=== PATIENT | male | born 1930 | race Asian ===

== ENCOUNTER 2019-04-25 17:56 | Inpatient (IN) | payer OTHER, MEDICARE ==
[~2019-04-25] VITALS: Ht 160 cm; Wt 64.7 kg
[2019-04-25 19:06] LABS: BASOPHILS ABSOLUTE AUTO 0.02 K/mm3 (0.00-0.23); BASOPHILS PERCENT AUTO 0 % (0-2); EOSINOPHILS ABSOLUTE AUTO 0.14 K/mm3 (0.00-0.68); EOSINOPHILS PERCENT AUTO 2 % (0-6); IMMATURE GRAN ABSOLUTE AUTO 0.06 K/mm3 (0.00-0.10); IMMATURE GRAN PERCENT AUTO 1 % (0-1); LYMPHOCYTES ABSOLUTE AUTO 0.74 K/mm3 (0.84-5.20); LYMPHOCYTES PERCENT AUTO 8 % (21-46); MONOCYTES ABSOLUTE AUTO 1.06 K/mm3 (0.16-1.47); MONOCYTES PERCENT AUTO 12 % (4-13); Mean Corpuscular HGB 32.5 pg (26.0-34.0); Mean Corpuscular HGB Conc 34.8 g/dL (31.5-36.5); Mean Corpuscular Volume 94 fL (80-100); Mean Platelet Volume 10.9 fL (9.1-12.4); NEUTROPHILS ABSOLUTE AUTO 7.17 K/mm3 (1.96-9.15); NEUTROPHILS PERCENT AUTO 78 % (41-73); Platelet Count 132 K/mm3 (150-400); RDW Coefficient Variation 13.2 % (11.7-14.2); RDW Standard Deviation 45.5 fL (35.1-46.3); Red Blood Cell Count 2.46 M/mm3 (4.30-5.90); White Blood Cell Count 9.19 K/mm3 (4.00-11.30)
[2019-04-25 19:46] LABS: Albumin, Blood 3.3 g/dL (3.4-5.0); Albumin/Globulin Ratio 0.9 (0.8-1.8); Bilirubin, Total 0.3 mg/dL (0.1-1.0); Bun/Creatinine Ratio 30.3 (12.0-20.0); Creatinine, Blood 2.44 mg/dL (0.60-1.20); Globulin, Blood 3.7 g/dL (2.2-4.0); Potassium, Blood 3.7 mmol/L (3.5-5.5)
[2019-04-25] MEDS ORDERED: ACET325 PO (20:33)
[2019-04-25] MEDS ORDERED: ASPIR 8181 MG PO (20:34)
[2019-04-25] MEDS ORDERED: ATOR20 PO (20:36)
[2019-04-25] MEDS ORDERED: AMLO5 PO (20:39)
[2019-04-25] MEDS ORDERED: Vitamin D2000 UNIT PO (20:40)
[2019-04-25] MEDS ORDERED: Cyclobenzaprine5 MG PO (20:41)
[2019-04-25] MEDS ORDERED: FERSU300 PO (20:42)
[2019-04-25] MEDS ORDERED: FINA5 PO (20:43)
[2019-04-25] MEDS ORDERED: FOLI1 PO (20:43)
[2019-04-25] MEDS ORDERED: GLIP5 PO (20:45)
[2019-04-25] MEDS ORDERED: LEVSOD50 PO (20:46)
[2019-04-25] MEDS ORDERED: LIDO700A20 TOP (20:47)
[2019-04-25] MEDS ORDERED: TAMS.4ER PO (20:48)
[2019-04-25] MEDS ORDERED: SEVE800 PO (20:49)
[2019-04-25] MEDS ORDERED: MIRALAX17 GM PO (20:50)
[2019-04-25] MEDS ORDERED: SENNA LAXATIVE8.6 MG PO (20:50)
[2019-04-25] MEDS ORDERED: ERGO50000 PO (21:01)
[2019-04-25] MEDS ORDERED: Glucose Gel38 GM PO (21:02)
[2019-04-25] MEDS ORDERED: PATIROMER PO (21:03)
--- NOTE | 2019-04-26 05:04 | NUR ---
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 PT [id number] AND PLEASANT. INDEPENDENT IN ROOM. PT ADMITTED FOR HYPONATREMIA WITH A VALUE AT 119. PT RECIEVING NS AT 100 ML/HR. PT EXPRESSES FRUSTRATION WITH BEING ADMITTED TO THE HOSPITAL BECAUSE HE SAYS "I FEEL JUST FINE, I DONT KNOW WHY I HAVE TO STAY THE NIGHT HERE". THIS RN PROVIDED EDUCATION RELATED TO RISKS OF HYPONATREMIA AND REASON FOR ADMISSION. PT HAS RESTED WELL THROUGH THE NIGHT. VSS, WILL CONTINUE TO MONITOR.
[2019-04-26 05:26] LABS: Hematocrit 19.8 % (37.0-53.0)
[2019-04-26 05:53] LABS: Bun/Creatinine Ratio 32.1 (12.0-20.0); Calcium, Blood 8.1 mg/dL (8.5-10.1); Creatinine, Blood 2.37 mg/dL (0.60-1.20); Potassium, Blood 3.8 mmol/L (3.5-5.5)
--- NOTE | 2019-04-26 07:30 | NUR ---
DNR BAND-LATE ENTRY FOR 729 DNR ORDER VERIFIED WITH PETRONA BERNAL RN. DNR BAND PLACED TO R WRIST
[2019-04-26 12:32] LABS: Source, Urine Catheter
[2019-04-26 12:41] LABS: Percent Saturation 18.6 % (20.0-50.0)
[2019-04-26 12:44] LABS: Uric Acid, Blood 5.1 mg/dL (3.5-7.2)
[2019-04-26 13:40] LABS: Appearance, Urine Hazy (Clear); Bilirubin, Urine Neg (Neg); Blood, Urine 5+ (Neg); Color, Urine Yellow (P-Yellow); Glucose Qualitative, Urine Neg (Neg); Ketones, Urine Neg (Neg); Leukocyte Esterase, Urine 3+ (Neg); Nitrite, Urine Neg (Neg); Protein, Urine 3+ (Neg); Urobilinogen, Urine NORM (Normal)
[2019-04-26 14:24] LABS: Bacteria Many /hpf; Red Blood Cells, Urine TNTC /hpf (0-2); Squamous Epithelial Cells Not Seen /hpf (Few); White Blood Cells, Urine TNTC /hpf (0-5)
[2019-04-26 14:49] LABS: Albumin, Blood 2.8 g/dL (3.4-5.0); Anion Gap 10 mmol/L (6-16); Blood Urea Nitrogen 76 mg/dL (8-24); Bun/Creatinine Ratio 32.6 (12.0-20.0); CO2, Blood 14 mmol/L (21-32); Calcium, Blood 7.9 mg/dL (8.5-10.1); Chloride, Blood 103 mmol/L (98-108); Creatinine, Blood 2.33 mg/dL (0.60-1.20); Glomerular Filtration Rate 28 (60-); Glucose, Blood 159 mg/dL (70-99); Phosphorus, Blood 2.9 mg/dL (2.5-4.9); Potassium, Blood 3.8 mmol/L (3.5-5.5); Sodium, Blood 127 mmol/L (136-145)
--- NOTE | 2019-04-26 16:54 | NUR ---
SHIFT SUMMARY 1ST UNIT OF BLOOD RUNNING CURRENTLY. PT TOLERATED WELL. PT SEEN BY DR. CONCEPCION. FLUIDS DCED. VSS. NEPHROSTOMY'S HAVE HAD GOOD OUTPUT. PATEL DRAINING & INTACT. NO OTHER CHANGES IN ASSESMENT AT THIS TIME. VSS. WILL CONTINUE TO MONITOR UNTIL TURNOVER IS COMPLETE. RECORDS REQUESTED FROM [facility]. AWAITING RESULTS.
[2019-04-26 18:50] LABS: Albumin, Blood 3.1 g/dL (3.4-5.0); Anion Gap 12 mmol/L (6-16); Blood Urea Nitrogen 72 mg/dL (8-24); Bun/Creatinine Ratio 29.3 (12.0-20.0); CO2, Blood 15 mmol/L (21-32); Calcium, Blood 8.1 mg/dL (8.5-10.1); Chloride, Blood 102 mmol/L (98-108); Creatinine, Blood 2.46 mg/dL (0.60-1.20); Glomerular Filtration Rate 27 (60-); Glucose, Blood 128 mg/dL (70-99); Phosphorus, Blood 3.5 mg/dL (2.5-4.9); Potassium, Blood 3.8 mmol/L (3.5-5.5); Sodium, Blood 129 mmol/L (136-145)
--- NOTE | 2019-04-26 19:19 | NUR ---
CALLED DR. CONCEPCION RE RESULTS OF RENAL PANEL. DR CONCEPCION STATED HAD SEEN REULTS ALREADY AND NEW ORDER PUT IN.
[2019-04-27 04:59] LABS: Albumin, Blood 2.9 g/dL (3.4-5.0); Anion Gap 11 mmol/L (6-16); Blood Urea Nitrogen 76 mg/dL (8-24); CO2, Blood 14 mmol/L (21-32); Calcium, Blood 8.3 mg/dL (8.5-10.1); Chloride, Blood 108 mmol/L (98-108); Creatinine, Blood 2.62 mg/dL (0.60-1.20); Glomerular Filtration Rate 25 (60-); Glucose, Blood 131 mg/dL (70-99); Phosphorus, Blood 3.6 mg/dL (2.5-4.9); Potassium, Blood 3.8 mmol/L (3.5-5.5); Sodium, Blood 133 mmol/L (136-145)
--- NOTE | 2019-04-27 06:26 | NUR ---
SHIFT SUMMARY- PT. HAD A RESTFUL NIGHT, NO APPARENT DISTRESS NOTED. 2ND UNIT OF BLOOD COMPLETED LAST NIGHT, PT. TOLERATED WELL. VSS. PT. DENIED ANY C/O PAIN OR DISCOMFORT T/O THE NIGHT. BILATERAL NEPHROSTOMIES AND INDWELLING PATEL CATHETER IN PLACE, DRAINING WELL. NO ACUTE CHANGES. CALL LIGHT WITHIN REACH AND SIDE RAILS UP X2. WILL CONT TO MONITOR.
[2019-04-27 08:51] LABS: Hemoglobin 10.8 g/dL (13.5-17.5); Mean Corpuscular HGB 31.9 pg (26.0-34.0); Mean Corpuscular HGB Conc 34.8 g/dL (31.5-36.5); Mean Platelet Volume 10.8 fL (9.1-12.4); Platelet Count 138 K/mm3 (150-400); RDW Coefficient Variation 14.8 % (11.7-14.2); Red Blood Cell Count 3.39 M/mm3 (4.30-5.90)
[2019-04-27 08:59] LABS: Mean Corpuscular Volume 91 fL (80-100)
--- NOTE | 2019-04-27 18:21 | NUR ---
SHIFT SUMMARY PT AXO, PLEASANT AND COOPERATIVE WITH CARE. THOUGH [place]. DENIES PAIN THIS SHIFT. UPSET AT FLUID RESTRICTION, NURSE EDUCATED PT ABOUT INDICATION FOR FLUID RESTRICTION THOUGH ORDER WAS DC'D THIS SHIFT. NEPHROSTOMIES AND PATEL PATENT AND DRAINING YELLOW URINE. PATIENT WORKED WITH PHYSICAL THERAPY, SEE ASSESSMENT. NO ACUTE CHANGES THIS SHIFT. CALL LIGHT WITHIN REACH, BED IN LOW POSITION.
--- NOTE | 2019-04-27 18:37 | NUR ---
AT 183 PT COMPLAINED OF NEPHROSTOMY PAIN. THIS NURSE IN TO ASSESS. SWELLING AT SITE NOTED. DR CONCEPCION CALLED WHO INSTRUCTED THIS NURSE TO CALL HOSPITALIST. THIS NURSE CALLED DR MANTILLA AT [address] NEW ORDERS AT THIS TIME. THIS NURSE TO REAPPLY TEGADERM AND BIO-PATCHS WHICH HAVE BEEN RUBBED OFF.
--- NOTE | 2019-04-27 19:43 | NUR ---
Pt returned to floor from radiology post CT of abd and pelvis. PAULINE ISABEL stated to call motion picture director MD when results were available. call placed to [facility] and said once its read, it will be faxed to the floor.
--- NOTE | 2019-04-27 20:26 | NUR ---
Assessment done, note bilat nephrostomies draining yellow/green - approx 30 ml in each bag. Denies pain. alert and oriented x 4.
--- NOTE | 2019-04-27 23:06 | NUR ---
PT VOICED PAIN OF RIGHT NEPHROSTOMY SITE, UPON OBSESRVANCE, NOTED SLIGHT SWELLING AT SITE. AM SHIFT STATED HAD SWELLING WELL. CALL PLACED TO MD APPLIED BEHAVIOR SCIENCE SPECIALIST, NURSE ASKED RE POSSIBLE COBRA, STATED THAT HIS CT DIDNT INDICATE A COBRA REMOVAL TO ANOTHER HOSPITAL AT THIS TIME. STATED NEEDE ANOTHER CT "IN THE MORNING", AND THE AM SHIFT WOULD DECIDE IF HE NEEDED TO BE TRANSFERRED TO ANOTHER HOSPITAL. MD SAID HE WOULD ORDER ANALGESICS. SEE MAR FOR DETAILS. PT REMAINS A/O X 4. BILATERAL NEPHROSTOMY DRESSING SITES CHANGED. SLIGHT REDDNESS NOTED AT SITE WHERE TUBES ENTER THE BODY - BILATERAL.
--- NOTE | 2019-04-28 00:05 | NUR ---
PT RESTING QUIETLY AT THIS TIME. NOTE BOTH RIGHT AND LEFT NEPHROSTOMIES DRAINING YELLOW URINE. MORE NOTED IN BAGS THAN PREVIOUSLY. NO COMPLAINTS OF PAIN AT THIS TIME. WILL CONTINUE TO ASSESS. CALL LIGHT IN REACH.
--- NOTE | 2019-04-28 02:46 | NUR ---
PT CONTINUES TO REST QUIETLY WITHOUT S/S ACUTE DISTRESS. WILL CONTINUE TO MONITOR OUTPUT WITH NEPHROSTOMIES. ETC. CALL LIGHT IN REACH.
--- NOTE | 2019-04-28 03:37 | NUR ---
CT OF ABD/PELVIS DONE AT SHIFT [facility]. RESULTS WERE CALLED TO BUTTON RIVETER MD, NO NOTED ACUTE NEEDS TO TRANSFER TO ANOTHER HOSPITAL (SEE CT DOCUMENTATION IN CHART). ALTHOUGH RIGHT NEPHROSTOMY SITE WAS SLIGHTLY SWOLLEN AND HAD SOME PAIN, PAIN SEEMED TO BE ALLEVIATED WHEN DRESSINGS WERE CHANGED. NOTE BILATERAL NEPHROSTOMIES DRAINING CLOUDY URINE. HAS BEEN RESTING QUIETLY FOR MUCH OF THIS SHIFT. CURRENTLY RESTING WITHOUT COMPLAINTS. CALL LIGHT IN REACH. IVF INFUSING - SEE MAR FOR DETAILS.
[2019-04-28 05:25] LABS: BASOPHILS ABSOLUTE AUTO 0.03 K/mm3 (0.00-0.23); BASOPHILS PERCENT AUTO 0 % (0-2); EOSINOPHILS ABSOLUTE AUTO 0.33 K/mm3 (0.00-0.68); EOSINOPHILS PERCENT AUTO 4 % (0-6); Hematocrit 28.3 % (37.0-53.0); Hemoglobin 9.9 g/dL (13.5-17.5); IMMATURE GRAN ABSOLUTE AUTO 0.05 K/mm3 (0.00-0.10); IMMATURE GRAN PERCENT AUTO 1 % (0-1); LYMPHOCYTES ABSOLUTE AUTO 0.94 K/mm3 (0.84-5.20); LYMPHOCYTES PERCENT AUTO 12 % (21-46); MONOCYTES ABSOLUTE AUTO 0.87 K/mm3 (0.16-1.47); MONOCYTES PERCENT AUTO 11 % (4-13); Mean Corpuscular HGB 32.1 pg (26.0-34.0); Mean Corpuscular Volume 92 fL (80-100); Mean Platelet Volume 11.3 fL (9.1-12.4); NEUTROPHILS ABSOLUTE AUTO 5.91 K/mm3 (1.96-9.15); NEUTROPHILS PERCENT AUTO 73 % (41-73); Platelet Count 123 K/mm3 (150-400); RDW Coefficient Variation 15.1 % (11.7-14.2); RDW Standard Deviation 50.5 fL (35.1-46.3); Red Blood Cell Count 3.08 M/mm3 (4.30-5.90); White Blood Cell Count 8.13 K/mm3 (4.00-11.30)
[2019-04-28 05:49] LABS: Albumin, Blood 2.8 g/dL (3.4-5.0); Anion Gap 13 mmol/L (6-16); Blood Urea Nitrogen 72 mg/dL (8-24); Bun/Creatinine Ratio 27.4 (12.0-20.0); CO2, Blood 14 mmol/L (21-32); Calcium, Blood 8.3 mg/dL (8.5-10.1); Chloride, Blood 106 mmol/L (98-108); Creatinine, Blood 2.63 mg/dL (0.60-1.20); Glomerular Filtration Rate 25 (60-); Glucose, Blood 143 mg/dL (70-99); Phosphorus, Blood 2.8 mg/dL (2.5-4.9); Potassium, Blood 3.8 mmol/L (3.5-5.5); Sodium, Blood 133 mmol/L (136-145)
[2019-04-28] MEDS ORDERED: AMLO5 PO (09:07)
[2019-04-28] MEDS ORDERED: MILK OF MA400 MG/5 M PO (09:10)
--- NOTE | 2019-04-28 17:44 | NUR ---
SHIFT SUMMARY PT AXO, PLEASANT AND COOPERATIVE WITH CARE THOUGH [facility]. URINE CULTURE POSITIVE FOR MRSA, CHARGE NURSE NOTIFIED, MESSAGE LEFT FOR INFECTION OFFICE (IVY ATKINS RN), AND ENTERED INTO ADMIN DATA. PT PLACED IN ISOLATION. VSS. NO OTHER CHANGES THIS SHIFT. PT HAD ULTRASOUND OF R. KIDNEY, SEE RESULTS. PT NOT ABLE TO BE ACCEPTED BACK TO OR THIS SHIFT R/T PHYSICIAN NOT AVAILABLE/ PRESENT AT [facility]. DR MANTILLA NOTIFIED. PER THE NURSE AT [facility], THERE PROBABLY WONT BE A PHYSICIAN ON STAFF TOMORROW EITHER. IV PATENT AND SALINE LOCKED. BED IN LOW POSITION, CALL LIGHT WITHIN REACH.
--- NOTE | 2019-04-28 19:45 | NUR ---
DURING NURSING ROUNDING, PT AWAKE, SMILING, STATED HE WASNT HAVING PAIN IN HIS BACK. CALL LIGHT IN REACH.
--- NOTE | 2019-04-29 04:38 | NUR ---
HAS BEEN RESTING QUIETLY WITH FEW INTERRUPTIONS THIS SHIFT. BILATERAL NEPHROSTOMIES DRAINING WITH YELLOW, CLOUDY URINE. DRESSINGS OF SITES INTACT. DENIED ANY UNUSUAL PAIN THROUGHOUT SHIFT WHEN ASKED. CALL LIGHT IN REACH.
--- NOTE | 2019-04-29 10:13 | NUR ---
RIGHT FA INV SITE LEAKING D/C.
--- NOTE | 2019-04-29 18:02 | NUR ---
SHIFT SUMMARY PT STABLE. PT HAS BILATERAL NEPHRECTOMY TUBES THAT ARE DRAING WELL, RIGHT SIDE HAS MINOR SWELLING. PT PARK PAIN DURING THIS SHIFT. PT HAS WINDOWS X2 OVER NEPHRECTOMY SITE. PT TOLORATES MEALS WELL. PT HAS CALL LIGHT WITH IN REACH WILL REPORT TO ONCOMING NOC RN.
--- NOTE | 2019-04-30 07:37 | NUR ---
PT SLEPT HE WAS ABLE, WAS PLEASANT AND COOPERATIVE WITH CARE, HE RECEIVED PAIN MED ONCE AT BEDTIME FOR 7/10 PAIN IN HIS NECK AND BACK. b/L NEPROSTOMY TUBES HAD SMALL AMOUNT OF OUTPUT THIS SHIFT. 100 ML EACH SIDE. HE ALSO HAD 300 ML OUTPUT FROM HIS PATEL CATH.
[2019-04-30 09:37] LABS: Vancomycin, Trough 18.6 ug/mL (5.0-10.0)
[2019-04-30 13:07] LABS: A/G RATIO 1.1 (0.7-1.7); ALBUMIN 2.9 g/dL (2.9-4.4); ALPHA-1-GLOBULIN 0.4 g/dL (0.0-0.4); ALPHA-2-GLOBULIN 0.7 g/dL (0.4-1.0); BETA GLOBULIN 1.2 g/dL (0.7-1.3); GAMMA GLOBULIN 0.5 g/dL (0.4-1.8); GLOBULIN, TOTAL 2.7 g/dL (2.2-3.9); IMMUNOGLOBULIN A, QN, SERUM 767 mg/dL (61-437); IMMUNOGLOBULIN G, QN, SERUM 550 mg/dL (700-1600); IMMUNOGLOBULIN M, QN, SERUM 23 mg/dL (15-143); M-SPIKE 0.6 g/dL (Not Observed); PROTEIN, TOTAL, SERUM 5.6 g/dL (6.0-8.5)
--- NOTE | 2019-04-30 16:34 | NUR ---
On April, at 1615, I asked patient his permission to assist his RN in his care tommorow evening. He verbally agreed. He was alert and oriented x4.
--- NOTE | 2019-04-30 18:38 | NUR ---
PT. LYING COMFORTABLY IN BED AFTER EATING. DENIES PAIN, N/V. AMBULATED IN MORALES TODAY WITH OCEAN FREIGHT AGENT. GAIT STEADY AND EVEN. NO NOTEABLE CHANGES THIS SHIFT. GOOD PATEL AND NEPHROSYOMY OUTPU.
[2019-05-01 04:42] LABS: BASOPHILS ABSOLUTE AUTO 0.04 K/mm3 (0.00-0.23); BASOPHILS PERCENT AUTO 1 % (0-2); EOSINOPHILS ABSOLUTE AUTO 0.45 K/mm3 (0.00-0.68); EOSINOPHILS PERCENT AUTO 6 % (0-6); Hematocrit 28.2 % (37.0-53.0); Hemoglobin 9.4 g/dL (13.5-17.5); IMMATURE GRAN ABSOLUTE AUTO 0.06 K/mm3 (0.00-0.10); IMMATURE GRAN PERCENT AUTO 1 % (0-1); LYMPHOCYTES ABSOLUTE AUTO 1.14 K/mm3 (0.84-5.20); LYMPHOCYTES PERCENT AUTO 15 % (21-46); MONOCYTES ABSOLUTE AUTO 0.78 K/mm3 (0.16-1.47); MONOCYTES PERCENT AUTO 10 % (4-13); Mean Corpuscular HGB 31.5 pg (26.0-34.0); Mean Corpuscular HGB Conc 33.3 g/dL (31.5-36.5); Mean Corpuscular Volume 95 fL (80-100); Mean Platelet Volume 10.5 fL (9.1-12.4); NEUTROPHILS ABSOLUTE AUTO 5.36 K/mm3 (1.96-9.15); NEUTROPHILS PERCENT AUTO 68 % (41-73); Platelet Count 144 K/mm3 (150-400); RDW Coefficient Variation 14.6 % (11.7-14.2); RDW Standard Deviation 51.1 fL (35.1-46.3); Red Blood Cell Count 2.98 M/mm3 (4.30-5.90); White Blood Cell Count 7.83 K/mm3 (4.00-11.30)
--- NOTE | 2019-05-01 04:57 | NUR ---
DECK MOLDER SUMMARY PT IS A/O X4. SLEPT WELL THROUGHOUT THE NIGHT AND CALLS APPROPRIATELY. PT HAS BILATERAL NEPHROSTOMY TUBES IN PLACE WELL PATEL. NEPHROSTOMY TUBES SITE ON ON RIGHT SIDE OF NELLY APPEARS TO HAVE MINOR SWELLING. NEPHROSTOMY TUBE ON LEFT SIDE OF NELLY APPEARS TO BE SLIGHTLY RED. NO ACUTE CHANGES. DENIES PAIN, NAUSEA, DIZZINESS. CALL LIGHT WITHIN REACH. BED IN LOWEST POSITION. WILL CONTINUE TO MONITOR.
[2019-05-01 05:01] LABS: Albumin, Blood 2.8 g/dL (3.4-5.0); Anion Gap 9 mmol/L (6-16); Blood Urea Nitrogen 71 mg/dL (8-24); Bun/Creatinine Ratio 26.7 (12.0-20.0); CO2, Blood 18 mmol/L (21-32); Calcium, Blood 8.4 mg/dL (8.5-10.1); Chloride, Blood 108 mmol/L (98-108); Creatinine, Blood 2.66 mg/dL (0.60-1.20); Glomerular Filtration Rate 24 (60-); Glucose, Blood 122 mg/dL (70-99); Phosphorus, Blood 3.5 mg/dL (2.5-4.9); Potassium, Blood 5.1 mmol/L (3.5-5.5); Sodium, Blood 135 mmol/L (136-145)
[2019-05-01 05:04] LABS: Vancomycin, Trough 25.8 ug/mL (5.0-10.0)
--- NOTE | 2019-05-01 13:14 | NUR ---
DISCHARGE PT STABLE AND BEING D/C TO [facility]. WAITING FOR A RETURN CALL TO GIVE REPORT TO EMANUEL THE NURSE TELEVISION SCHEDULE COORDINATOR [facility]. IN MEDICAL TRANSPORT WILL BE TRANSPORTINGTHE PT BACK [facility]. PT BELONGING WILL BE SENT WITH PT.
[2019-05-01] MEDS ORDERED: LINE600 PO (13:18)
--- NOTE | 2019-05-01 14:35 | NUR ---
REPORT GIVEN REPORT CALLED TO DESEAN EVANS
== END 2019-05-01 14:00 | DRG 641 ==
LOC: ER 17:56 → MEDS 17:57 → ER 23:23 → MEDS 23:32 → ENPENDDIS 05-01 10:00 → MEDS 05-01 14:00
PROVIDERS: Emergency Medicine; Internal Medicine; Nurse Practitioner Acute Care; ADMIT Internal Medicine
PROC: 30233N1 Transfusion of Nonautologous Red Blood Cells into Peripheral Vein, Percutaneous Approach (ICD-10-PCS; principal; 2019-04-26)
DX: E87.1 Hypo-osmolality and hyponatremia (principal); N18.4 Chronic kidney disease, stage 4 (severe); I48.20 Chronic atrial fibrillation, unspecified; E87.3 Alkalosis; I12.9 Hypertensive chronic kidney disease with stage 1 through stage 4 chronic kidney disease, or unspecified chronic kidney disease; Z96.0 Presence of urogenital implants; Z95.1 Presence of aortocoronary bypass graft; Z87.891 Personal history of nicotine dependence; D63.1 Anemia in chronic kidney disease; R33.9 Retention of urine, unspecified; Z93.6 Other artificial openings of urinary tract status; Z22.322 Carrier or suspected carrier of Methicillin resistant Staphylococcus aureus
CPT/HCPCS: 36415; 36430; 74176; 76705; 76857; 80048; 80053; 80069; 80202; 81001; 82607; 82728; 82746; 82784; 82947; 83540; 83550; 83880; 83930; 83935; 84133; 84165; 84300; 84443; 84550; 85014; 85018; 85025; 85027; 86334; 86850; 86900; 86901; 86923; 87086; 87147; 87186; 96360; 96361; 97116; 97161; 99285-25; A9270; G0378; J0881; J3370; J7030; J7070; P9016